=== PATIENT | female | born 1950 | race African-American/Black ===

== ENCOUNTER → 2018-11-30 | Outpatient (CLI) | payer MEDICARE, OTHER ==
[~2018-11-30] MED LIST: REGADENOSON 0.4 MG/5 ML SYR IV ONE
== END ==
LOC: NM 08:50
PROVIDERS: ATTEND Internal Medicine Cardiovascular Disease
DX: I20.9 Angina pectoris, unspecified (principal); I25.10 Atherosclerotic heart disease of native coronary artery without angina pectoris
CPT/HCPCS: 78452; 93017; A9502; J2785